=== PATIENT | male | born 1995 | race Caucasian/White ===

== ENCOUNTER 2023-02-01 23:48 | Emergency (ER) | payer OTHER, SELFPAY ==
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
[2023-02-02 00:03] VITALS: BP 125/62; PULSE 69; RESP 15; TEMP 36.8; O2SAT 96; BMI 22.9
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
[2023-02-02 03:35] VITALS: BP 96/72; PULSE 72; RESP 16; O2SAT 96
== END 2023-02-02 03:36 | disposition home or self-care (01) ==
PROVIDERS: Emergency Provider Emergency Medicine
DX: S13.4XXA Sprain of ligaments of cervical spine, initial encounter (principal); R07.89 Other chest pain; R51.9 Headache, unspecified; M54.2 Cervicalgia; M79.671 Pain in right foot; M25.571 Pain in right ankle and joints of right foot; V43.52XA Car driver injured in collision with other type car in traffic accident, initial encounter; Y93.9 Activity, unspecified; Y92.410 Unspecified street and highway as the place of occurrence of the external cause; Y99.9 Unspecified external cause status
CPT/HCPCS: 70450; 71046; 72125; 73600; 73620; 99284